=== PATIENT | female | born 2000 | race Caucasian/White ===

== ENCOUNTER → 2019-01-17 19:44 | Outpatient (CLI) | payer BC, SELFPAY ==
--- NOTE | 2019-01-17 21:00 | DI.RAD.S_ITS ---
PROCEDURE: XR LUMBAR SPINE MIN 4V INDICATIONS: low back pain with left leg paresthesias TECHNIQUE: 5 views of the lumbar spine acquired. COMPARISON: None. FINDINGS: Bones: 5 nonrib-bearing vertebrae are present. There is normal bony alignment. No vertebral body compression fractures. No suspicious bony lesions. Soft tissues: There is gaseous distention of the imaged bowel. No suspicious soft tissue calcifications. Flexion/extension: There is normal range of motion, with preserved normal alignment. There is no loss of alignment on flexion and extension views. IMPRESSION: No acute osseous abnormality of the lumbar spine. No radiographic findings to explain patient's reported low back pain. Dictated by: Gómez Valerio M.D. on 01/17/2019 at 23:40 Approved by: Gómez Valerio M.D. on 01/17/2019 at 23:42
== END ==
PROVIDERS: Visit Provider Physician Assistant
DX: M54.5 Low back pain (principal); R20.2 Paresthesia of skin
CPT/HCPCS: 72110